=== PATIENT | male | born 1950 | race Caucasian/White ===

== ENCOUNTER → 2022-01-16 09:44 | Outpatient (CLI) | payer OTHER, SELFPAY ==
[2022-01-16 10:41] LABS: COVID19 -Nasal RAPID Negative (Negative)
== END ==
PROVIDERS: Visit Provider Surgery
DX: Z20.822 Contact with and (suspected) exposure to COVID-19 (principal); Z01.812 Encounter for preprocedural laboratory examination
CPT/HCPCS: 87635; C9803

== ENCOUNTER → 2022-01-19 06:31 | Day surgery (SDC) | payer OTHER, SELFPAY ==
--- NOTE | 2022-01-19 | PATH_ITS ---
[facility] Accession Number: [id number] . 01 Material submitted: . PART A: colon - ASCENDING COLON BIOPSIES PART B: colon - TRANSVERSE COLON BIOPSIES PART C: colon - DESCENDING COLON BIOPSIES PART D: sigmoid colon - SIGMOID COLON BIOPSIES PART E: rectum - RECTAL BIOPSIES . 01 Clinical history: . SDC ULCERATIVE COLITIS, UNSPECIFIED, WITHOUT COMPLICATIONS . 01 Diagnosis: A-E. Ascending Colon, Transverse Colon, Descending Colon, Sigmoid Colon, Rectum, Biopsies: Colonic mucosa with no significant diagnostic abnormality. Negative for active inflammation, granulomas, dysplasia, and malignancy. . [facility] 01/23/2022 1555 Local . 01 Electronically signed: . Samantha Vitale MD, Pathologist NPI- [id number] . 01 Gross description: . Part A: ASCENDING COLON BIOPSIES: Received in formalin is 1 fragment(s) of ubrgos, soft tissue measuring 0.1 x 0.1 x 0.1 cm submitted entirely in 1 cassette(s) Part B: TRANSVERSE COLON BIOPSIES: Received in formalin are 2 fragment(s) of burgos, soft tissue measuring 0.1 x 0.1 x 0.1 cm in aggregate submitted entirely in 1 cassette(s) Part C: DESCENDING COLON BIOPSIES: Received in formalin is 1 fragment(s) of burgos, soft tissue measuring 0.2 x 0.2 x 0.2 cm submitted entirely in 1 cassette(s) Part D: SIGMOID COLON BIOPSIES: Received in formalin is 1 fragment(s) of burgos, soft tissue measuring 0.3 x 0.2 x 0.2 cm submitted entirely in 1 cassette(s) Part E: RECTAL BIOPSIES: Received in formalin are 2 fragment(s) of burgos, soft tissue measuring 0.1 x 0.1 x 0.1 cm to 0.2 x 0.2 x 0.1 cm submitted entirely in 1 cassette(s) /JONO 01/20/2022 1850 Local . 01 Pathologist provided ICD-10: K51.90 . 01 CPT . 795178, 895548, 211569, 450347, 998381 Specimen Comment: A courtesy copy of this report has been sent to [phone] Performed at: 01 [facility] [address] [place] [address], [place], [place] [id number] MD Patrick Harper MD Phone: [phone]
[2022-01-19 07:24] VITALS: BP 151/76; PULSE 65; RESP 18; TEMP 35.3; O2SAT 96; BMI 25.0
--- NOTE | 2022-01-19 07:48 | PM.HP.1 ---
History of Present Illness History of Present Illness Date Patient Seen: 01/19/22 Time Patient Seen: 07:48 Chief complaint: SDC Narrative: I reviewed the note from Dr. Mendez in July. Sounds like he has had a remote history of ulcerative colitis and is due for surveillance. Patient History Family & Social History Social History: household members spouse Tobacco & Substance use: Tobacco type cigarettes Smoking Status Former smoker alcohol intake never Substance Use Type does not use Meds Home Medications and Allergies Home Medications Medication Instructions Recorded Confirmed Type mesalamine 0.375 gram 1.5 g PO QAM 01/19/22 01/19/22 History capsule,extended release 24 hr (Apriso) sildenafil 100 mg tablet (Viagra) 100 mg PO DAILY PRN prn 01/19/22 01/19/22 History tadalafil 20 mg tablet (Cialis) 20 mg PO DAILY PRN prn 01/19/22 01/19/22 History Allergies Allergy/AdvReac Type Severity Reaction Status Date / Time Penicillins Allergy Unknown Verified 01/19/22 07:39 Review of Systems Review of Systems ROS: Yes All systems reviewed with the patient and are negative except as otherwise documented Exam Vital Signs (past 8 hours): - 01/19/22 07:24 Temperature 95.6 F L Pulse Rate 65 Respiratory Rate 18 Blood Pressure 151/76 H Pulse Oximetry 96 Oxygen Delivery Method Room Air Oxygen Delivery Method Room Air Const General: cooperative HENMT Head: normal to inspection Eyes General: appearance normal, both eyes and all related structures Neck Neck: normal visual inspection Chest Chest: normal inspection of the chest Resp Effort & Inspection: normal respiratory effort Cardio Rate: regular rate GI Inspection: normal to inspection Skin General: no rashes or lesions noted Neuro General: patient alert and patient awake Extrem General: normal to inspection and no pedal edema Psych Appearance: grossly normal Assessment & Plan Assessment & Plan narrative: 71-year-old male with ulcerative colitis indicated for surveillance. Colonoscopy is planned for today. Time Spent With Patient Critical Care time: I spent a total of [] minutes of critical care time on this patient's care today; this time is exclusive of procedural time.
--- NOTE | 2022-01-19 08:00 | PM.PREOP ---
Pre-operative Note COVID-19 COVID-19 status: Negative Result date/Date tested (Pos, Neg/Pending): 01/16/22 Criteria for continued procedure: Possibility delay results in more complex future surgery or treatment Interval Note History & Physical reviewed/Exam performed by Physician: Yes Changes to H&P: No ASA Class (for procedural sedation): II
--- NOTE | 2022-01-19 08:26 | P.OP.COLON_ITS ---
Operative Date/Time/Diagnoses Date of procedure: 01/19/22 Time of procedure: 08:26 Pre-op diagnosis: History of ulcerative colitis Post-op diagnosis: same Procedure & Clinicians Study performed: Colonoscopy with biopsies Same procedure as scheduled: Yes Indications: History of ulcerative colitis Surgeon: Jaylon Amezcua Procedure Notes SCOAP/Timeout: Done Procedure in detail: After the risks and benefits were explained, written and verbal informed consent was obtained. The patient was brought into the procedure room and placed into the left lateral decubitus position. Please see nurse director pharmacovigilance notes for sedation details. Digital rectal examination was accomplished. The scope was introduced into the patient and advanced under direct visualization to the cecum as identified by the appendiceal orifice and ileocecal valve. The scope was slowly withdrawn to carefully examine the mucosa for any defects or lesions. Comprehensive imaging was accomplished throughout the rectum including the dentate line. The colon was decompressed, the scope was then removed from the patient who tolerated the procedure well. Adult colonoscope Bowel prep adequate Scope withdrawal time: 11 minutes Sedation minutes: 17 Complications: none Impression: Diverticulosis was encountered in the sigmoid and even in the ascending colon. There is no evidence of proctitis no evidence of colitis throughout. The terminal ileum was interrogated and appeared visually normal. Segmental biopsies were taken from the ascending, transverse, descending, sigmoid, and finally rectum and submitted separately for histopathologic analysis. No significant polyps mass lesions identified throughout. Mild internal hemorrhoids were noted on direct views grade 1. Endoscopic diagnosis 1. Grade 1 hemorrhoids 2. Diverticulosis 3. Otherwise visually normal colonoscopy and terminal ileoscopy Post-procedure Plan for aftercare: 1. Await histopathology. 2. Consider surveillance colonoscopy 2 years. Disposition: PACU
[2022-01-19 08:28] VITALS: BP 107/58; PULSE 54; RESP 14; TEMP 36.4; O2SAT 94
[2022-01-19 08:34] VITALS: BP 92/35; PULSE 62; RESP 12; TEMP 36.9; O2SAT 99
[2022-01-19 08:39] VITALS: BP 133/68; PULSE 59; RESP 14; TEMP 36.8; O2SAT 98
[2022-01-19 08:42] VITALS: BP 118/69; PULSE 58; RESP 13; TEMP 36.9; O2SAT 99
--- NOTE | 2022-01-19 08:54 | SUR.PHASEI ---
0840 - Patient discharged from phase 1 to phase 2. IV removed per protocol with no complications.
== END | disposition home or self-care (01) ==
PROVIDERS: Referring Provider Internal Medicine Gastroenterology; Visit Provider Internal Medicine Gastroenterology
PROC: 0DJD8ZZ Inspection of Lower Intestinal Tract, Via Natural or Artificial Opening Endoscopic (ICD-10-PCS; CPT 45378; principal; 2022-01-19 08:00)
DX: Z87.19 Personal history of other diseases of the digestive system (principal); K64.0 First degree hemorrhoids; K57.30 Diverticulosis of large intestine without perforation or abscess without bleeding
CPT/HCPCS: 45378; J2704